=== PATIENT | female | born 1935 | race Two or more races ===

== ENCOUNTER 2023-07-18 10:00 | Emergency (ER) | payer OTHER ==
[~2023-07-18] VITALS: Ht 149.9 cm; Wt 43.5 kg
[~2023-07-18 10:00] MED LIST: PROTONIX40 MG PO; SYNTHROID50 MCG PO; ULTRACET PO
[2023-07-18 11:22] LABS: HEMATOCRIT 38.1 % (36.0-45.00); HEMOGLOBIN 12.7 g/dL (12.0-15.00); MEAN CELL VOLUME 88.8 fL (80.00-100.00); MEAN CORPUSCULAR HEMOGLOBIN 29.7 pg (27.00-32.0); MEAN CORPUSCULAR HGB CONC 33.5 g/dl (32.0-36.0); PLATELET COUNT 209 K/uL (150-450); RED BLOOD COUNT 4.29 M/uL (4.00-6.00); RED CELL DISTRIBUTION WIDTH 14.8 % (11.5-14.5)
[2023-07-18 11:47] LABS: PH,URINE 6.5 (5.0-8.0); URINE APPEARANCE Clear; URINE BILIRRUBIN Negative (NEGATIVE); URINE BLOOD NHT; URINE COLOR Yellow; URINE GLUCOSE Negative (NEGATIVE); URINE LEUKOCYTE Negative; URINE NITRATE Negative; URINE PROTEIN 30 (NEGATIVE); URINE UROBILINOGEN 0.2 E.U./dl
[2023-07-18 11:49] LABS: ALBUMIN 3.4 gm/dL (3.4-5.0); BILIRUBIN TOTAL 0.88 mg/dL (0.3-1.2); CREATININE SERUM 0.85 mg/dL (0.55-1.02); GFR 63.12; POTASSIUM 4.1 mEq/L (3.5-5.1); TOTAL PROTEIN 6.4 gm/dL (6.4-8.2)
[2023-07-18 11:50] LABS: URINE BACTERIA 20.1 uL (0.0-1933); URINE EPITHELIAL CELLS 7.8 uL (0.0-38.8); URINE RBC 19.2 uL (0.0-20.8)
[2023-07-19] MEDS ORDERED: 0.9 % SODIUM CHLORIDE 1,000 ML IV SCH (09:00)
== END 2023-07-18 12:21 | disposition designated cancer center or children's hospital (05) ==
LOC: ER 10:00
PROVIDERS: Emergency Medicine
DX: R53.83 Other fatigue (principal); I10 Essential (primary) hypertension; E03.8 Other specified hypothyroidism; Z88.6 Allergy status to analgesic agent
CPT/HCPCS: 36415; 71045; 93041; 96365; 99285; J7030

== ENCOUNTER 2024-03-20 11:42 | Emergency (ER) | payer OTHER ==
[~2024-03-20] VITALS: Ht 152.4 cm; Wt 44.0 kg
[2024-03-20] MEDS ORDERED: CETIRIZINE HCL10 MG PO (13:27)
[2024-03-20] MEDS ORDERED: [UNRECOGNIZED DRUG - OTHER] (13:27)
[2024-03-20] MEDS ORDERED: ADVAIR HFA 115/12 GM IH (13:27)
[2024-03-20] MEDS ORDERED: LOSARTAN POTASS25 MG PO (13:27)
[2024-03-20] MEDS ORDERED: MONTELUKAST SOD10 MG PO (13:27)
[2024-03-20] MEDS ORDERED: FAMOTIDINE/PF 20 MG/2 ML VIAL IV PUSH STA (13:50)
[2024-03-20 14:41] LABS: HEMATOCRIT 41.5 % (36.0-45.00); HEMOGLOBIN 13.9 g/dL (12.0-15.00); MEAN CELL VOLUME 89.8 fL (80.00-100.00); MEAN CORPUSCULAR HEMOGLOBIN 30.1 pg (27.00-32.0); MEAN CORPUSCULAR HGB CONC 33.6 g/dl (32.0-36.0); PLATELET COUNT 262 K/uL (150-450); RED BLOOD COUNT 4.63 M/uL (4.00-6.00); RED CELL DISTRIBUTION WIDTH 14.5 % (11.5-14.5)
== END 2024-03-20 15:59 | disposition home or self-care (01) ==
LOC: ER 11:44
PROVIDERS: General Practice
DX: R05.9 Cough, unspecified (principal); Z20.822 Contact with and (suspected) exposure to COVID-19

== ENCOUNTER 2024-08-02 16:58 | Inpatient (IN) | payer OTHER ==
[~2024-08-02] VITALS: Ht 149.9 cm; Wt 42.6 kg
[~2024-08-02 16:58] MED LIST changes: +ADVAIR HFA 115/12 GM IH; +CETIRIZINE HCL10 MG PO; +LOSARTAN POTASS25 MG PO; +MONTELUKAST SOD10 MG PO; +[UNRECOGNIZED DRUG - OTHER]
--- NOTE | 2024-08-02 17:11 | NUR ---
SE RECIBE PTE ALERTA Y ORIENTADA LA CUAL REFIERE VENIR POR TOS SECA Y DIFICULTAD RESPIRATORIA DESDE HACE 2 LAMAS. PTE REFIERE PADECER DE ASMA. SE MIDEN S/V A PTE, PTE AL MOMENTO REFIERE HABERSE DADO VARIAS RONDAS DE TERAPIAS EN SWIFT HOGAR. PTE SE UBICA EN AREA.
[2024-08-02] MEDS ORDERED: BUDESONIDE 0.5 MG/2 ML AMPUL.NEB IH STA (17:43)
[2024-08-02] MEDS ORDERED: CEFTRIAXONE SODIUM 1,000 MG VIAL IM STA (17:44)
[2024-08-02] MEDS ORDERED: METHYLPREDNISOLONE SOD SUCC 125 MG VIAL IV STA (17:44)
[2024-08-02] MEDS ORDERED: CEFTRIAXONE SODIUM 1,000 MG VIAL ONE (17:49)
[2024-08-02] MEDS ORDERED: METHYLPREDNISOLONE SOD SUCC 125 MG VIAL ONE (17:49)
--- NOTE | 2024-08-02 18:12 | NUR ---
SE ORIENTA A PACIENTE Y FAMILIAR SOBRE ORDEN MEDICA LA MISMA REFIERE ENTENDER Y ACEPTAL.
[2024-08-02 18:52] LABS: COVID-19 AG NEGATIVE (NEGATIVE)
[2024-08-02 18:53] LABS: INFLUENZA A AG POSITIVE (NEGATIVE)
[2024-08-02 18:55] LABS: HEMATOCRIT 43.1 % (36.0-45.00); HEMOGLOBIN 14.5 g/dL (12.0-15.00); MEAN CELL VOLUME 88.3 fL (80.00-100.00); MEAN CORPUSCULAR HEMOGLOBIN 29.7 pg (27.00-32.0); MEAN CORPUSCULAR HGB CONC 33.6 g/dl (32.0-36.0); PLATELET COUNT 158 K/uL (150-450); RED BLOOD COUNT 4.88 M/uL (4.00-6.00); RED CELL DISTRIBUTION WIDTH 14.3 % (11.5-14.5)
[2024-08-02] MEDS ORDERED: BUDESONIDE 0.5 MG/2 ML AMPUL.NEB IH ONE (19:03)
[2024-08-02 19:11] LABS: ABG PH 7.456 (7.35-7.45); ABG pCO2 33.1 mmHg (35-45); BASE EXCESS -0.3 mmol/l; BICARBONATE 22.8 mmol/l (23-25); SaO2 91.5 %; Tco2 23.8 mmol/l
[2024-08-02] MEDS ORDERED: LEVALBUTEROL HCL 1.25 MG/3 ML SOLUTION IH ONE ×2 (19:11→22:33)
[2024-08-02] MEDS ORDERED: LEVALBUTEROL HCL 1.25 MG/3 ML SOLUTION IH SCH ×2 (20:15→21:55)
[2024-08-02 20:19] LABS: ABG PO2 58.7 mmHg (80-100); allen test SATISFACTORY; mode ROOM AIR; o2 21 %; puncture site RADIAL RIGHT
[2024-08-02 20:26] LABS: CALCIUM 9.3 mg/dL (8.5-10.1); CREATININE SERUM 0.73 mg/dL (0.55-1.02); GFR 75.06; POTASSIUM 3.68 mEq/L (3.5-5.1)
[2024-08-02] MEDS ORDERED: IPRATROPIUM BROMIDE 0.5 MG/2.5 ML AMPUL.NEB IH SCH (21:54)
[2024-08-02] MEDS ORDERED: MONTELUKAST SODIUM 10 MG TABLET PO SCH (21:57)
[2024-08-02] MEDS ORDERED: ACETAMINOPHEN 500 MG GEL..CAP PO PRN (22:00)
[2024-08-02] MEDS ORDERED: 0.9 % SODIUM CHLORIDE 1,000 ML IV SCH (22:00)
[2024-08-02] MEDS ORDERED: OSELTAMIVIR PHOSPHATE 75 MG CAPSULE PO SCH (22:00)
[2024-08-02] MEDS ORDERED: METHYLPREDNISOLONE SOD SUCC 40 MG VIAL IV SCH (22:00)
[2024-08-02] MEDS ORDERED: GUAIFEN/DEXTROMETHORPHAN/PE 10 ML BLIST.PACK PO SCH (22:00)
[2024-08-02] MEDS ORDERED: AZITHROMYCIN 500 MG in DEXTROSE 5 % IN WATER 250 ML IV SCH (22:01)
[2024-08-02] MEDS ORDERED: CEFTRIAXONE SODIUM 2,000 MG in 0.9 % SODIUM CHLORIDE 100 ML IV SCH (22:01)
[2024-08-02] MEDS ORDERED: FAMOTIDINE/PF 20 MG in 0.9 % SODIUM CHLORIDE 8 ML IV PUSH SCH (22:01)
[2024-08-02] MEDS ORDERED: ONDANSETRON HCL 4 MG in 0.9 % SODIUM CHLORIDE 50 ML IV PRN (22:15)
[2024-08-02] MEDS ORDERED: IPRATROPIUM BROMIDE 0.5 MG/2.5 ML AMPUL.NEB IH ONE (22:33)
[2024-08-03] VITALS (8 sets, daily range): BP systolic 150–187; BP diastolic 72–90; O2SAT 95–100
[2024-08-03] MEDS ORDERED: OSELTAMIVIR PHOSPHATE 75 MG CAPSULE PO ONE (00:28)
[2024-08-03] MEDS ORDERED: METHYLPREDNISOLONE SOD SUCC 40 MG VIAL ONE (00:28)
[2024-08-03] MEDS ORDERED: AZITHROMYCIN 500 MG VIAL IV ONE ×2 (00:29→20:23)
[2024-08-03] MEDS ORDERED: GUAIFEN/DEXTROMETHORPHAN/PE 10 ML BLIST.PACK PO ONE (00:29)
[2024-08-03] MEDS ORDERED: FAMOTIDINE/PF 20 MG/2 ML VIAL ONE (00:29)
[2024-08-03 01:49] LABS: INR 1.05; PARTIAL THROMBOPLASTIN TIME 29.1 SECONDS (22.0-34.0); PROTHROMBIN TIME 11.4 SECONDS (9.0-11.5)
[2024-08-03] MEDS ORDERED: LEVOTHYROXINE SODIUM 50 MCG TABLET PO SCH (06:00)
[2024-08-03 06:44] LABS: PH,URINE 5.5 (5.0-8.0); URINE APPEARANCE Clear; URINE BILIRRUBIN Negative (NEGATIVE); URINE BLOOD Trace; URINE COLOR Yellow; URINE KETONE 15 (NEGATIVE); URINE LEUKOCYTE Negative; URINE NITRATE Negative; URINE PROTEIN 30 (NEGATIVE); URINE UROBILINOGEN 0.2 E.U./dl
[2024-08-03 06:45] LABS: URINE BACTERIA 105.2 uL (0.0-1933); URINE EPITHELIAL CELLS 13.9 uL (0.0-38.8)
[2024-08-03 07:18] LABS: MAGNESIUM 2.3 mg/dL (1.8-2.4); PHOSPHOROUS 3.7 mg/dL (2.5-4.9)
[2024-08-03 07:18] LABS: URINE CAST 0.73 uL (0.0-1.40); URINE GLUCOSE 100 MG/DL (NEGATIVE)
[2024-08-03 07:26] LABS: TSH 0.027 uIU/mL (0.358-3.74)
[2024-08-03] MEDS ORDERED: ONDANSETRON HCL 2 MG/ML VIAL IV PRN (08:30)
[2024-08-03] MEDS ORDERED: ENALAPRILAT DIHYDRATE 1.25 MG/ML VIAL IV PRN (08:30)
[2024-08-03] MEDS ORDERED: ENOXAPARIN SODIUM 40 MG/0.4 ML SYRINGE SUBCUTANEO SCH (09:00)
[2024-08-03] MEDS ORDERED: LOSARTAN POTASSIUM 25 MG TABLET PO SCH (09:00)
[2024-08-03 11:50] LABS: ALT/SGPT 19 U/L (12-78); AST/SGOT 28 U/L (15-37); LDH 248 U/L (84-246); PHOSPHOKINASE CREATININE 148 U/L (26-192)
[2024-08-03] MEDS ORDERED: AZITHROMYCIN 500 MG VIAL IV SCH (21:00)
[2024-08-04 02:06] VITALS: BP 160/78; O2SAT 96
[2024-08-04] MEDS ORDERED: LEVOTHYROXINE SODIUM 88 MCG TABLET PO SCH (06:00)
[2024-08-04 06:23] LABS: HEMATOCRIT 40.1 % (36.0-45.00); HEMOGLOBIN 13.8 g/dL (12.0-15.00); MEAN CELL VOLUME 87.2 fL (80.00-100.00); MEAN CORPUSCULAR HEMOGLOBIN 30.1 pg (27.00-32.0); MEAN CORPUSCULAR HGB CONC 34.5 g/dl (32.0-36.0); PLATELET COUNT 160 K/uL (150-450)
[2024-08-04 06:42] LABS: ALBUMIN 3.3 gm/dL (3.4-5.0); BILIRUBIN TOTAL 0.4 mg/dL (0.3-1.2); CALCIUM 8.9 mg/dL (8.5-10.1); CREATININE SERUM 0.73 mg/dL (0.55-1.02); GFR 75.06; GLOBULINA 3.3 G/DL (2.4-3.5); MAGNESIUM 2.3 mg/dL (1.8-2.4); PHOSPHOROUS 3.6 mg/dL (2.5-4.9); POTASSIUM 4.38 mEq/L (3.5-5.1); TOTAL PROTEIN 6.6 gm/dL (6.4-8.2)
[2024-08-04 06:46] LABS: C-REACTIVE PROTEIN 1.09 MG/DL (0.00-0.29)
[2024-08-04 08:58] VITALS: BP 130/60; O2SAT 96
[2024-08-04 11:12] LABS: ABG PH 7.387 (7.35-7.45); ABG pCO2 41.6 mmHg (35-45); BASE EXCESS -0.6 mmol/l; BICARBONATE 24.5 mmol/l (23-25); SaO2 91.7 %; Tco2 25.7 mmol/l
[2024-08-04 11:15] LABS: allen test SATISFACTORY; mode ROOM AIR; o2 21 %; puncture site RADIAL RIGHT
[2024-08-04 11:53] VITALS: O2SAT 95
[2024-08-04 13:58] VITALS: O2SAT 88
[2024-08-04 16:38] VITALS: BP 176/82; BP 192/89; O2SAT 94
[2024-08-04 16:39] VITALS: O2SAT 100; O2SAT 94
[2024-08-04] MEDS ORDERED: IPRATROPIU0.2 MG/1 M IH (16:50)
[2024-08-04] MEDS ORDERED: XOPENEX CO1.25 MG/0. IH (16:51)
[2024-08-04] MEDS ORDERED: MONTELUKAST SOD10 MG PO (16:52)
[2024-08-04] MEDS ORDERED: ALTIPRES LIQUI473 ML PO (16:52)
[2024-08-04] MEDS ORDERED: OSEL75CA PO (16:53)
[2024-08-04] MEDS ORDERED: AZITHROMYCIN500 MG PO (16:54)
[2024-08-04] MEDS ORDERED: INTESTINEX680 M1 PO (16:55)
[2024-08-04] MEDS ORDERED: PREDNISONE10 M2 PO (16:56)
== END 2024-08-04 18:00 | disposition home or self-care (01) | DRG 203 ==
LOC: ER 16:59 → MEDJ 22:20
PROVIDERS: General Practice; Internal Medicine Infectious Disease; ADMIT Internal Medicine; ATTEND Internal Medicine
PROC: BB24ZZZ Computerized Tomography (CT Scan) of Bilateral Lungs (ICD-10-PCS; principal; 2024-08-02)
PROC: 3E0F7GC Introduction of Other Therapeutic Substance into Respiratory Tract, Via Natural or Artificial Opening (ICD-10-PCS; 2024-08-02)
PROC: B246ZZZ Ultrasonography of Right and Left Heart (ICD-10-PCS; 2024-08-03)
PROC: 4A12X4Z Monitoring of Cardiac Electrical Activity, External Approach (ICD-10-PCS; 2024-08-03)
DX: J45.41 Moderate persistent asthma with (acute) exacerbation (principal); J10.1 Influenza due to other identified influenza virus with other respiratory manifestations; R09.02 Hypoxemia; Z95.0 Presence of cardiac pacemaker; E03.8 Other specified hypothyroidism; J06.9 Acute upper respiratory infection, unspecified